=== PATIENT | female | born 1960 | race Caucasian/White ===

== ENCOUNTER 2022-01-02 12:24 | Outpatient (CLI) | payer BC | END 2022-01-02 12:25 | disposition home or self-care (01) | LOC: TBSIIMAG 12:24 | PROVIDERS: ATTEND Neurological Surgery | DX: M50.10 Cervical disc disorder with radiculopathy, unspecified cervical region (principal); M47.22 Other spondylosis with radiculopathy, cervical region | CPT/HCPCS: 72141 ==